=== PATIENT | female | born 1990 | race African-American/Black ===

== ENCOUNTER 2017-02-05 17:48 | Inpatient (IN) | payer BC ==
[~2017-02-05] VITALS: Ht 162.6 cm; Wt 61.2 kg
[2017-02-05] MEDS ORDERED: NKM (18:45)
[2017-02-05 19:04] LABS: APPEARANCE,URINE CLEAR; KETONES,URINE 3+ (NEGATIVE); LEUKOCYTE ESTERASE ,URINE NEGATIVE (NEGATIVE); NITRITE,URINE NEGATIVE (NEGATIVE); PH,URINE 6 (4.5-8.0); PROTEIN,URINE NEGATIVE (NEGATIVE); UROBILINOGEN,URINE 1 MG/DL (0.0-1.0)
[2017-02-05 19:05] LABS: BASOPHILS % (AUTO) 0.9 % (0.0-2.0); EOSINOPHILS % (AUTO) 3.3 % (0.0-3.0); LYMPHOCYTES % (AUTO) 24.6 % (20.0-45.0); MEAN CORPUSCULAR HEMOGLOBIN 31.4 PG (27.0-31.0); MEAN CORPUSCULAR VOLUME 92 FL (80-99); MEAN PLATELET VOLUME 5.8 FL (6.5-10.1); MONOCYTES % (AUTO) 6.6 % (1.0-10.0); NEUTROPHILS % (AUTO) 64.5 % (45.0-75.0); PLATELET COUNT 336 K/UL (150-450); RED BLOOD COUNT 3.54 M/UL (4.20-5.40); RED CELL DISTRIBUTION WIDTH 12.8 % (11.6-14.8); WHITE BLOOD COUNT 13.2 K/UL (4.8-10.8)
[2017-02-05 19:06] LABS: ALANINE AMINOTRANSFERASE 15 U/L (3-33); ALBUMIN/GLOBULIN RATIO 0.9 (1.0-2.7); ANION GAP 12 (5-15); ASPARTATE AMINO TRANSFERASE 20 U/L (5-40); CALCIUM 9.2 mg/dL (8.6-10.2); CARBON DIOXIDE 27 mEQ/L (20-30); CHLORIDE 101 mEQ/L (98-107); CREATININE 0.8 mg/dL (0.5-0.9); GLOMERULAR FILTRATION RATE > 60 mL/min (>60); HEMOLYSIS 4; LIPASE 43 U/L (< 60); POTASSIUM 3.9 mEQ/L (3.4-4.9); SODIUM 140 mEQ/L (135-145); TOTAL PROTEIN 8.1 g/dL (6.6-8.7)
[2017-02-05 19:18] LABS: BACTERIA,URINE FEW /HPF; SQUAMOUS EPITHELIAL CELL,UR FEW /LPF (NONE/OCC); WBC,URINE 0-2 /HPF (0 - 2)
[2017-02-05 20:04] LABS: INR 1.1 (0.9-1.1); PROTHROMBIN TIME 11.1 SEC (9.30-11.50)
[2017-02-05] MEDS ORDERED: Solu-MEDROL 125mg Inj IVP ONE (21:00)
[2017-02-05] MEDS ORDERED: Morphine Sulfate 4mg/ml Inj IVP ONE (21:00)
[2017-02-05] MEDS ORDERED: Miralax 17gm pkt ORAL PRN (21:15)
[2017-02-05] MEDS ORDERED: Mylanta II UD 30ml ORAL PRN (21:15)
[2017-02-05] MEDS ORDERED: Nitroglycerin Subl 0.4mg tab (Bottle Of 25) SL PRN (21:15)
[2017-02-05 21:33] VITALS: BP 109/70
--- NOTE | 2017-02-05 21:44 | Emergency Room Report ---
History of Present Illness General Chief Complaint: Abdominal Pain Source: Patient Present Illness HPI 26 YO Female presents to the ED c/o Right lower quadrant pain and tenderness 7/ 10 in severity with associated nausea x 4 days. pt. states pain began becka- umbillical and then migrated to RLQ. pt. states she was seen in a clinic earlier today and was told to go to the ED for evaluation of appendicitis. pt. denies vomiting or fevers, pt. reports chills. pt. states she is due for her period next week. pt denies hx of ovarian cysts. pt. denies constipation or diarrhea, denies abnormal vaginal d/c, dysuria, or frequency. pt. states she had CTA chest performed several months ago. Denies CP, Palpitations, LOC, AMS, dizziness, Changes in Vision, Sensation, paresthesias, or a sudden severe headache. Allergies: Coded Allergies: No Known Allergies (Unverified , 02/05/17) Patient History Past Medical History: see triage record Past Surgical History: none Pertinent Family History: none Last Menstrual Period: 1 month Now: No Immunizations: UTD Reviewed Nursing Documentation: PMH: Agreed, PSxH: Agreed Nursing Documentation-PMH Past Medical History: No Stated History Review of Systems All Other Systems: negative except mentioned in HPI Physical Exam Vital Signs Date Time Temp Pulse Resp B/P Pulse Ox O2 Delivery O2 Flow Rate FiO2 02/05/17 18:01 99.1 103 20 110/78 97 Room Air Sp02 EP Interpretation: reviewed, abnormal - pt is tachycardic 103 bpm General Appearance: no apparent distress, alert, GCS 15, non-toxic Head: normocephalic, atraumatic Eyes: bilateral eye PERRL, bilateral eye normal inspection ENT: hearing grossly normal, normal pharynx, no angioedema, normal voice Neck: full range of motion, supple/symm/no masses Respiratory: lungs clear, normal breath sounds, speaking full sentences Cardiovascular #1: regular rate, rhythm, no edema, tachycardia Gastrointestinal: normal bowel sounds, soft, no rebound, guarding - guarding the RLQ, tenderness - RLQ TTP Rectal: deferred Genitourinary: normal inspection, no CVA tenderness, adnexa normal, other - no adnexal TTP Musculoskeletal: back normal, gait/station normal, normal range of motion, non- tender Neurologic: alert, oriented x3, responsive, motor strength/tone normal, sensory intact, speech normal Psychiatric: judgement/insight normal, memory normal, mood/affect normal Skin: normal color, no rash, warm/dry, well hydrated Lymphatic: no adenopathy Medical Decision Making PA Attestation Dr. Guy is my supervising Physician whom patient management has been discussed with. Diagnostic Impression: Primary Impression: Ileitis Additional Impression: Abdominal pain Qualified Codes: R10.31 - Right lower quadrant pain ER Course Pt. presents to the ED c/o Right lower quadrant pain and tenderness 7/10 in severity with associated nausea x 4 days. pt. states pain began becka-umbillical and then migrated to RLQ. pt. states she was seen in a clinic earlier today and was told to go to the ED for evaluation of appendicitis. pt. denies vomiting or fevers, pt. reports chills. pt. states she is due for her period next week. pt denies hx of ovarian cysts. pt. denies constipation or diarrhea, denies abnormal vaginal d/c, dysuria, or frequency. pt. states she had CTA chest performed several months ago. Ddx considered but are not limited to Diverticulitis, acute appendicitis, diarrhea, UC, PUD, GE, ovarian cyst just to name a few pancreatitis, gallstones. Vital signs: tachcyardic at 103 bpm, remaining VS are WNL, pt. is afebrile H&PE are most consistent with possible appendicitis ORDERS: -CBC - wbc's elevated at 13.2 - CMP, lipase: unremarkable , electrolytes ok -UA: no evidence of infection, rbc's and occult blood present, otherwise unremarkable -Urine Hcg: negative -PT/PTT: WNL - CT Abdomen Pelvis with Contrast: Thickening of terminal ileum suggestive of an ileitis. Inflammation is also seen involving the cecum- normal appendix per official radiology report. ED INTERVENTIONS: -Morphine IV - Prednisone IV -Zofran DISPOSITION: at this time pt. will be admitted to Dr. Coon for Ileitis and possible colitis. Dr. Coon agreed to admit the pt. and to continue pt. care management. Labs Test 02/05/17 18:30 White Blood Count 13.2 K/UL (4.8-10.8) Red Blood Count 3.54 M/UL (4.20-5.40) Hemoglobin 11.1 G/DL (12.0-16.0) Hematocrit 32.7 % (37.0-47.0) Mean Corpuscular Volume 92 FL (80-99) Mean Corpuscular Hemoglobin 31.4 PG (27.0-31.0) Mean Corpuscular Hemoglobin Concent 34.0 G/DL (32.0-36.0) Red Cell Distribution Width 12.8 % (11.6-14.8) Platelet Count 336 K/UL (150-450) Mean Platelet Volume 5.8 FL (6.5-10.1) Neutrophils (%) (Auto) 64.5 % (45.0-75.0) Lymphocytes (%) (Auto) 24.6 % (20.0-45.0) Monocytes (%) (Auto) 6.6 % (1.0-10.0) Eosinophils (%) (Auto) 3.3 % (0.0-3.0) Basophils (%) (Auto) 0.9 % (0.0-2.0) Prothrombin Time 11.1 SEC (9.30-11.50) Prothromb Time International Ratio 1.1 (0.9-1.1) Activated Partial Thromboplast Time 26 SEC (23-33) Urine Color Yellow Urine Appearance Clear Urine pH 6 (4.5-8.0) Urine Specific [place] 1.015 (1.005-1.035) Urine Protein Negative (NEGATIVE) Urine Glucose (UA) Negative (NEGATIVE) Urine Ketones 3+ (NEGATIVE) Urine Occult Blood 2+ (NEGATIVE) Urine Nitrite Negative (NEGATIVE) Urine Bilirubin Negative (NEGATIVE) Urine Urobilinogen 1 MG/DL (0.0-1.0) Urine Leukocyte Esterase Negative (NEGATIVE) Urine RBC 5-10 /HPF (0 - 2) Urine WBC 0-2 /HPF (0 - 2) Urine Squamous Epithelial Cells Few /LPF (NONE/OCC) Urine Bacteria Few /HPF (NONE) Urine HCG, Qualitative Negative Sodium Level 140 mEQ/L (135-145) Potassium Level 3.9 mEQ/L (3.4-4.9) Chloride Level 101 mEQ/L (98-107) Carbon Dioxide Level 27 mEQ/L (20-30) Anion Gap 12 (5-15) Blood Urea Nitrogen 7 mg/dL (7-23) Creatinine 0.8 mg/dL (0.5-0.9) Estimat Glomerular Filtration Rate > 60 mL/min (>60) Glucose Level 95 mg/dL (74-106) Calcium Level 9.2 mg/dL (8.6-10.2) Total Bilirubin 0.4 mg/dL (0.0-1.2) Aspartate Amino Transf (AST/SGOT) 20 U/L (5-40) Alanine Aminotransferase (ALT/SGPT) 15 U/L (3-33) Alkaline Phosphatase 49 U/L (35-104) Total Protein 8.1 g/dL (6.6-8.7) Albumin 4.0 g/dL (3.5-5.2) Globulin 4.1 g/dL Albumin/Globulin Ratio 0.9 (1.0-2.7) Lipase 43 U/L (< 60) Last Vital Signs Date Time Temp Pulse Resp B/P Pulse Ox O2 Delivery O2 Flow Rate FiO2 02/05/17 21:33 98.2 93 14 109/70 100 Room Air Disposition: ADMITTED INPATIENT Condition: Serious Referrals: NOT CHOSEN MACHELLE/,REFERRING (PCP) Gina Ambrosio Feb 05, 2017 21:44
[2017-02-05 21:50] VITALS: BP 116/74
[2017-02-05] MEDS: D5 1/2NS 1,000 ML IV SCH (22:18)
[2017-02-05] MEDS: Piperacillin/Tazobactam 3.375 GM in NS 110 ML IVPB SCH (22:31)
[2017-02-06] VITALS (12 sets, daily range): BP systolic 97–139; BP diastolic 61–97
[2017-02-06] MEDS: Morphine Sulfate 2mg/ml Inj IVP PRN ×4 (00:42→14:40)
[2017-02-06] MEDS ORDERED: Probiotics PO (02:25)
[2017-02-06] MEDS: Piperacillin/Tazobactam 3.375 GM in NS 110 ML IVPB SCH ×2 (05:54→13:55)
[2017-02-06] MEDS: LORazepam 0.5mg tab ORAL PRN (07:58)
[2017-02-06] MEDS: Pantoprazole Inj IVP SCH (08:23)
[2017-02-06] MEDS ORDERED: Heparin 5000 units/ml inj SUBQ SCH (09:00)
[2017-02-06 09:40] LABS: BASOPHILS % (AUTO) 0.5 % (0.0-2.0); EOSINOPHILS % (AUTO) 4.1 % (0.0-3.0); MEAN CORPUSCULAR HGB CONC 32.2 G/DL (32.0-36.0); MEAN CORPUSCULAR VOLUME 93 FL (80-99); MEAN PLATELET VOLUME 6.1 FL (6.5-10.1); MONOCYTES % (AUTO) 8.4 % (1.0-10.0); PLATELET COUNT 302 K/UL (150-450); RED BLOOD COUNT 3.49 M/UL (4.20-5.40); RED CELL DISTRIBUTION WIDTH 13.3 % (11.6-14.8); WHITE BLOOD COUNT 9.1 K/UL (4.8-10.8)
[2017-02-06 09:50] LABS: ALANINE AMINOTRANSFERASE 11 U/L (3-33); ALBUMIN/GLOBULIN RATIO 0.8 (1.0-2.7); AMYLASE 131 U/L (10-110); ANION GAP 9 (5-15); ASPARTATE AMINO TRANSFERASE 16 U/L (5-40); CALCIUM 8.7 mg/dL (8.6-10.2); CARBON DIOXIDE 26 mEQ/L (20-30); CHLORIDE 104 mEQ/L (98-107); CREATININE 0.6 mg/dL (0.5-0.9); GLOMERULAR FILTRATION RATE > 60 mL/min (>60); HEMOLYSIS 3; LIPASE 28 U/L (< 60); POTASSIUM 3.7 mEQ/L (3.4-4.9); SODIUM 139 mEQ/L (135-145); TOTAL PROTEIN 6.8 g/dL (6.6-8.7)
[2017-02-06] MEDS: D5 1/2NS 1,000 ML IV SCH ×3 (10:45→23:36)
--- NOTE | 2017-02-06 12:55 | History and Physical ---
History of Present Illness General Date patient seen: Feb 06, 2017 Reason for Hospitalization: Abdominal Pain Present Illness HPI 26 year olf Female presents to the ED c/o Right lower quadrant pain and tenderness 7/10 in severity with associated nausea x 4 days. pt. states pain began becka-umbillical and then migrated to RLQ. pt. states she was seen in a clinic earlier today and was told to go to the ED for evaluation of appendicitis. pt. denies vomiting or fevers, pt. reports chills. She had a Ct abdomen in ER showing possible appendicitis, She has been by surgeon who will take her to OR pending availability or OR room. Allergies: Coded Allergies: OXYCODONE (Verified Adverse Reaction, Intermediate, Hallucinations, 02/06/17 ) Per patient she experienced change in mood/behavior and was hallucinations. Medication History Scheduled [Probiotics], 1 CAP PO DAILY, (Reported) Discontinued Medications No Known Medications* (NKM - No Known Medications*), 0 ., (Reported) Discontinued Reason: MD discontinued med Patient History Healthcare decision maker Resuscitation status Full Code Advanced Directive on File No Review of Systems All Other Systems: negative except mentioned in HPI Physical Exam General Appearance: WD/WN Lines, tubes and drains: peripheral HEENT: normocephalic, atraumatic Neck: non-tender, normal alignment Respiratory/Chest: chest wall non-tender, lungs clear Cardiovascular/Chest: normal peripheral pulses, regular rhythm Abdomen: normal bowel sounds, non tender Last 24 Hour Vital Signs Date Time Temp Pulse Resp B/P Pulse Ox O2 Delivery O2 Flow Rate FiO2 02/06/17 11:59 97.9 88 20 97/65 97 Room Air 02/06/17 11:14 98.5 02/06/17 09:00 97.9 81 20 108/70 100 Room Air 02/06/17 00:00 98.0 79 17 113/61 99 Room Air 02/05/17 21:50 98.5 79 17 116/74 100 Room Air 02/05/17 21:39 93 14 109/70 100 Room Air 02/05/17 21:33 98.2 93 14 109/70 100 Room Air 02/05/17 18:01 99.1 103 20 110/78 97 Room Air Intake and Output 02/05/17 02/06/17 19:00 07:00 Intake Total 1682.5 ml Balance 1682.5 ml Intake Oral 0 ml IV Total 1682.5 ml # Voids 2 Laboratory Tests Test 02/05/17 18:30 02/06/17 09:10 White Blood Count 13.2 K/UL (4.8-10.8) H 9.1 K/UL (4.8-10.8) Red Blood Count 3.54 M/UL (4.20-5.40) L 3.49 M/UL (4.20-5.40) L Hemoglobin 11.1 G/DL (12.0-16.0) L 10.5 G/DL (12.0-16.0) L Hematocrit 32.7 % (37.0-47.0) L 32.5 % (37.0-47.0) L Mean Corpuscular Volume 92 FL (80-99) 93 FL (80-99) Mean Corpuscular Hemoglobin 31.4 PG (27.0-31.0) H 30.0 PG (27.0-31.0) Mean Corpuscular Hemoglobin Concent 34.0 G/DL (32.0-36.0) 32.2 G/DL (32.0-36.0) Red Cell Distribution Width 12.8 % (11.6-14.8) 13.3 % (11.6-14.8) Platelet Count 336 K/UL (150-450) 302 K/UL (150-450) Mean Platelet Volume 5.8 FL (6.5-10.1) L 6.1 FL (6.5-10.1) L Neutrophils (%) (Auto) 64.5 % (45.0-75.0) 66.0 % (45.0-75.0) Lymphocytes (%) (Auto) 24.6 % (20.0-45.0) 21.0 % (20.0-45.0) Monocytes (%) (Auto) 6.6 % (1.0-10.0) 8.4 % (1.0-10.0) Eosinophils (%) (Auto) 3.3 % (0.0-3.0) H 4.1 % (0.0-3.0) H Basophils (%) (Auto) 0.9 % (0.0-2.0) 0.5 % (0.0-2.0) Prothrombin Time 11.1 SEC (9.30-11.50) Prothromb Time International Ratio 1.1 (0.9-1.1) Activated Partial Thromboplast Time 26 SEC (23-33) 27 SEC (23-33) Urine Color Yellow Urine Appearance Clear Urine pH 6 (4.5-8.0) Urine Specific [place] 1.015 (1.005-1.035) Urine Protein Negative (NEGATIVE) Urine Glucose (UA) Negative (NEGATIVE) Urine Ketones 3+ (NEGATIVE) H Urine Occult Blood 2+ (NEGATIVE) H Urine Nitrite Negative (NEGATIVE) Urine Bilirubin Negative (NEGATIVE) Urine Urobilinogen 1 MG/DL (0.0-1.0) H Urine Leukocyte Esterase Negative (NEGATIVE) Urine RBC 5-10 /HPF (0 - 2) H Urine WBC 0-2 /HPF (0 - 2) Urine Squamous Epithelial Cells Few /LPF (NONE/OCC) Urine Bacteria Few /HPF (NONE) Urine HCG, Qualitative Negative Sodium Level 140 mEQ/L (135-145) 139 mEQ/L (135-145) Potassium Level 3.9 mEQ/L (3.4-4.9) 3.7 mEQ/L (3.4-4.9) Chloride Level 101 mEQ/L (98-107) 104 mEQ/L (98-107) Carbon Dioxide Level 27 mEQ/L (20-30) 26 mEQ/L (20-30) Anion Gap 12 (5-15) 9 (5-15) Blood Urea Nitrogen 7 mg/dL (7-23) 4 mg/dL (7-23) L Creatinine 0.8 mg/dL (0.5-0.9) 0.6 mg/dL (0.5-0.9) Estimat Glomerular Filtration Rate > 60 mL/min (>60) > 60 mL/min (>60) Glucose Level 95 mg/dL (74-106) 101 mg/dL (74-106) Calcium Level 9.2 mg/dL (8.6-10.2) 8.7 mg/dL (8.6-10.2) Total Bilirubin 0.4 mg/dL (0.0-1.2) 0.4 mg/dL (0.0-1.2) Aspartate Amino Transf (AST/SGOT) 20 U/L (5-40) 16 U/L (5-40) Alanine Aminotransferase (ALT/SGPT) 15 U/L (3-33) 11 U/L (3-33) Alkaline Phosphatase 49 U/L (35-104) 43 U/L (35-104) Total Protein 8.1 g/dL (6.6-8.7) 6.8 g/dL (6.6-8.7) Albumin 4.0 g/dL (3.5-5.2) 3.2 g/dL (3.5-5.2) L Globulin 4.1 g/dL 3.6 g/dL Albumin/Globulin Ratio 0.9 (1.0-2.7) L 0.8 (1.0-2.7) L Lipase 43 U/L (< 60) 28 U/L (< 60) Amylase Level 131 U/L (10-110) H Height (Feet): 5 Height (Inches): 4.00 Weight (Pounds): 135 Medications Current Medications Medications (Trade) Dose Ordered Sig/Humaira Route PRN Reason Start Time Stop Time Status Last Admin Dose Admin Acetaminophen (Tylenol) 650 mg Q4H PRN ORAL fever 02/05/17 21:15 03/07/17 21:14 Al Hydroxide/Mg Hydroxide (Mylanta II) 30 ml Q6H PRN ORAL dyspepsia 02/05/17 21:15 03/07/17 21:14 Dextrose STAT PRN IV Hypoglycemia 02/05/17 21:15 03/07/17 21:14 Dextrose/Sodium Chloride (D5 0.45% NS) 1,000 ml @ 75 mls/hr [id number] IV 02/05/17 21:25 03/07/17 21:24 02/05/17 22:18 Diphenhydramine HCl (Benadryl) 25 mg Q6H PRN ORAL Itching/Pruritis 02/05/17 21:15 03/07/17 21:14 Lorazepam (Ativan) 0.5 mg Q6H PRN ORAL For Anxiety 02/06/17 08:00 02/13/17 07:59 02/06/17 07:58 Morphine Sulfate (Morphine Sulfate) 2 mg EVERY 4 HOURS PRN IVP severe Pain (Pain Scale 7-10) 02/05/17 21:15 02/12/17 21:14 02/06/17 10:44 Nitroglycerin (Ntg) 0.4 mg Q5M X 3 DOSES PRN SL Prn Chest Pain 02/05/17 21:15 03/07/17 21:14 Ondansetron HCl (Zofran) 4 mg Q6H PRN IVP Nausea & Vomiting 02/05/17 21:15 03/07/17 21:14 Pantoprazole (Protonix) 40 mg DAILY IVP 02/06/17 09:00 03/08/17 08:59 02/06/17 08:23 Piperacillin Sod/ Tazobactam Sod/ Sodium Chloride (Zosyn/Sodium Chloride) 110 ml @ 27.5 mls/hr EVERY 8 HOURS IVPB 02/05/17 22:00 02/12/17 21:59 02/06/17 05:54 Polyethylene Glycol (Miralax) 17 gm HSPRN PRN ORAL Constipation 02/05/17 21:15 03/07/17 21:14 Temazepam (Restoril) 15 mg HSPRN PRN ORAL Insomnia 02/05/17 21:15 02/12/17 21:14 Assessment/Plan Problem List: (1) PID (acute pelvic inflammatory disease) ICD Codes: N73.0 - Acute parametritis and pelvic cellulitis SNOMED: 641770148 (2) Appendicitis ICD Codes: K37 - Unspecified appendicitis SNOMED: 44761801 (3) Abdominal pain ICD Codes: R10.9 - Unspecified abdominal pain SNOMED: 39347189 Qualifiers: Qualified Codes: R10.31 - Right lower quadrant pain (4) colitis (5) Ileitis ICD Codes: K52.9 - Noninfective gastroenteritis and colitis, unspecified SNOMED: 09213394 Assessment/Plan IV abx NPO iv fluids surgery and GI evaluation. MICKY WOODARD Feb 06, 2017 12:55
--- NOTE | 2017-02-06 14:18 | General Progress Note ---
Progress Note Progress Note Surgery: called to see patient with acute RLQ abdominal pain. Patient states 2-3 days ago began to have vague lower abdominal pain periumbilical that has since localized to RLQ. pain associated with nausea. As pain progressed she went to her pcp who recommended her to come to ED. Came to ED recently and admitted for evaluation. CT scan performed in ED was read by outside radiologist as normal appendix. In review of CT today by myself and our in house radiologist, appendix does not look completely normal as there is some thickening and inflammation at the tip with periappendiceal inflammation at the tip. on exam she has focal right lower quadrant tenderness with rebound and guarding. +rovsings +mcburney's point tenderness. T max 99.1. WBC 13k on admission. Currently still in pain and almost unable to perform exam because of focal RLQ tenderness. High suspicion for appendicitis given history and clinical exam. Recommend laparoscopic appendectomy. discussed with patient above. explained that despite exam and date there is still a possibility of false positive and no pathology found during surgery. consent obtained. Joe Mckeon Feb 06, 2017 14:18
--- NOTE | 2017-02-06 14:19 | Pre-Procedure Note/Attestation ---
Pre-Procedure Note/Attestation Complete Prior to Procedure Planned Procedure: not applicable Procedure Narrative: laparoscopic appendectomy Indications for Procedure Pre-Operative Diagnosis: focal RLQ abdominal pain likely appendicitis Attestation I attest that I discussed the nature of the procedure; its benefits; risks and complications; and alternatives (and the risks and benefits of such alternatives ), prior to the procedure, with the patient (or the patient's legal registration representative). I attest that, if there was a reasonable possibility of needing a blood transfusion, the patient (or the patient's legal registration representative) was given the [facility] standardized written summary, pursuant to the [place] Blood Safety Act ([place] Health and Safety Code # 1645, as amended). I attest that I re-evaluated the patient just prior to the surgery and that there has been no change in the patient's H&P, except as documented below: Joe Mckeon Feb 06, 2017 14:19
--- NOTE | 2017-02-06 14:57 | Diagnostic Imaging Report ---
Clinical Indication: Abdominal pain right lower quadrant pain Technique: No oral contrast utilized, per emergency room physician request IV administration nonionic contrast. Venous and delayed phase spiral acquisition obtained through the abdomen and pelvis. Multiplanar reconstructions were generated. Total dose length product 1335 mGycm. CTDIvol(s) 14 and 15 mGy. Dose reduction achieved using automated exposure control Comparison: None Findings: Lack of enteric contrast severely limits assessment of the bowel. The appendix is slightly prominent and some fluid is seen surrounding it. It measures up to 10 mm thick near the base. No discrete extraluminal fluid collections. No extraluminal gas The hepatic flexure of the colon projects anterior to the right hepatic lobe and under the right hemidiaphragm. There is equivocal slight infiltration of the pericolonic fat adjacent to the hepatic flexure as well as to a slight extent adjacent to the transverse colon. There is equivocal slight thickening of the transverse colon wall. No small bowel distention. No free intraperitoneal air. No evidence of diverticulosis or diverticulitis. The included lung bases are clear. The bones are unremarkable. There is some edema of the subcutaneous fat and of the fat in the lumbar region. There is what appears to be a lipoma within the left upper hip region/lower flank subcutaneous fat. The liver, gallbladder, bile ducts, pancreas, spleen, adrenals, kidneys are unremarkable. No retroperitoneal or mesenteric mass or adenopathy. No pelvic mass or adenopathy. 2.4 cm presumed dominant follicle is seen in the left ovary. Cluster of cysts is seen surrounding the endocervical canal Impression: Limited assessment of the GI tract, due to lack of enteric contrast administration Slightly prominent appendix with slight inflammation of the stranding fat and possibly small amount of fluid. Findings are suspicious for acute appendicitis Possible inflammation of the hepatic flexure of the colon and transverse colon as well. Nonspecific edema of the subcutaneous and lumbar fat. Trace free pelvic fluid, likely physiologic. However, pelvic structures are not well-defined, and pelvic and endovaginal ultrasound should be considered to rule out underlying pelvic inflammatory disease. 2.4 cm left ovarian cyst, probably a dominant follicle Clustered cysts surrounding endocervical canal, probably a tunnel cluster of nabothian cysts Findings represent a discrepancy from the [facility] bone report. Discrepant findings were discussed by phone with with Dr. Coon, reviewed in person with Dr. Foster and Dr. Mckeon The CT scanner at [facility] is accredited by the [place] [employer] and the scans are performed using protocols designed to limit radiation exposure to as low as reasonably achievable to attain images of sufficient resolution adequate for diagnostic evaluation.
--- NOTE | 2017-02-06 15:21 | GI Initial Consult Note ---
History of Present Illness General Date patient seen: Feb 06, 2017 Time patient seen: 13:00 Reason for Hospitalization: Abdominal Pain Referring physician: MICKY ZAVALETA Reason for Consultation: ABDOMINAL PAIN Present Illness HPI 26 YO Female presents to the ED c/o Right lower quadrant pain and tenderness 7/ 10 in severity with associated nausea x 4 days. pt. states pain began becka- umbillical and then migrated to RLQ. pt. states she was seen in a clinic earlier today and was told to go to the ED for evaluation of appendicitis. pt. denies vomiting or fevers, pt. reports chills. pt. states she is due for her period next week. pt denies hx of ovarian cysts. pt. denies constipation or diarrhea, denies abnormal vaginal d/c, dysuria, or frequency. pt. states she had CTA chest performed several months ago. Denies CP, Palpitations, LOC, AMS, dizziness, Changes in Vision, Sensation, paresthesias, or a sudden severe headache. GI Consult. HPI as noted above. GI consulted for abdominal pain; appendicitis vs ileitis based on CT AP in ER. Pt seen on floor, awake A&Ox4 NAD with no active s/sx of N/V/D. Presents today with RLQ pain, leukocytosis and mild anemia. C/o of constipation. No history of endoscopic procedures. Home Meds Reported Medications [Probiotics] No Conflict Check, 1 CAP PO DAILY 02/06/17 Discontinued Reported Medications No Known Medications* (NKM - No Known Medications*) ., 0 ., 0 Refills 02/05/17 Med list reviewed/reconciled: Yes Allergies: Coded Allergies: OXYCODONE (Verified Adverse Reaction, Intermediate, Hallucinations, 02/06/17 ) Per patient she experienced change in mood/behavior and was hallucinations. Patient History History Provided By: Patient, Medical Record PMH Narrative No Stated History Social History: Denies: alcohol use, drug use, other, smoking Review of Systems All Other Systems: negative except mentioned in HPI Physical Exam Vital Signs Date Time Temp Pulse Resp B/P Pulse Ox O2 Delivery O2 Flow Rate FiO2 02/05/17 18:01 99.1 103 20 110/78 97 Room Air Sp02 EP Interpretation: reviewed Labs Laboratory Tests Test 02/05/17 18:30 02/06/17 09:10 White Blood Count 13.2 K/UL (4.8-10.8) H 9.1 K/UL (4.8-10.8) Red Blood Count 3.54 M/UL (4.20-5.40) L 3.49 M/UL (4.20-5.40) L Hemoglobin 11.1 G/DL (12.0-16.0) L 10.5 G/DL (12.0-16.0) L Hematocrit 32.7 % (37.0-47.0) L 32.5 % (37.0-47.0) L Mean Corpuscular Volume 92 FL (80-99) 93 FL (80-99) Mean Corpuscular Hemoglobin 31.4 PG (27.0-31.0) H 30.0 PG (27.0-31.0) Mean Corpuscular Hemoglobin Concent 34.0 G/DL (32.0-36.0) 32.2 G/DL (32.0-36.0) Red Cell Distribution Width 12.8 % (11.6-14.8) 13.3 % (11.6-14.8) Platelet Count 336 K/UL (150-450) 302 K/UL (150-450) Mean Platelet Volume 5.8 FL (6.5-10.1) L 6.1 FL (6.5-10.1) L Neutrophils (%) (Auto) 64.5 % (45.0-75.0) 66.0 % (45.0-75.0) Lymphocytes (%) (Auto) 24.6 % (20.0-45.0) 21.0 % (20.0-45.0) Monocytes (%) (Auto) 6.6 % (1.0-10.0) 8.4 % (1.0-10.0) Eosinophils (%) (Auto) 3.3 % (0.0-3.0) H 4.1 % (0.0-3.0) H Basophils (%) (Auto) 0.9 % (0.0-2.0) 0.5 % (0.0-2.0) Prothrombin Time 11.1 SEC (9.30-11.50) Prothromb Time International Ratio 1.1 (0.9-1.1) Activated Partial Thromboplast Time 26 SEC (23-33) 27 SEC (23-33) Urine Color Yellow Urine Appearance Clear Urine pH 6 (4.5-8.0) Urine Specific [place] 1.015 (1.005-1.035) Urine Protein Negative (NEGATIVE) Urine Glucose (UA) Negative (NEGATIVE) Urine Ketones 3+ (NEGATIVE) H Urine Occult Blood 2+ (NEGATIVE) H Urine Nitrite Negative (NEGATIVE) Urine Bilirubin Negative (NEGATIVE) Urine Urobilinogen 1 MG/DL (0.0-1.0) H Urine Leukocyte Esterase Negative (NEGATIVE) Urine RBC 5-10 /HPF (0 - 2) H Urine WBC 0-2 /HPF (0 - 2) Urine Squamous Epithelial Cells Few /LPF (NONE/OCC) Urine Bacteria Few /HPF (NONE) Urine HCG, Qualitative Negative Sodium Level 140 mEQ/L (135-145) 139 mEQ/L (135-145) Potassium Level 3.9 mEQ/L (3.4-4.9) 3.7 mEQ/L (3.4-4.9) Chloride Level 101 mEQ/L (98-107) 104 mEQ/L (98-107) Carbon Dioxide Level 27 mEQ/L (20-30) 26 mEQ/L (20-30) Anion Gap 12 (5-15) 9 (5-15) Blood Urea Nitrogen 7 mg/dL (7-23) 4 mg/dL (7-23) L Creatinine 0.8 mg/dL (0.5-0.9) 0.6 mg/dL (0.5-0.9) Estimat Glomerular Filtration Rate > 60 mL/min (>60) > 60 mL/min (>60) Glucose Level 95 mg/dL (74-106) 101 mg/dL (74-106) Calcium Level 9.2 mg/dL (8.6-10.2) 8.7 mg/dL (8.6-10.2) Total Bilirubin 0.4 mg/dL (0.0-1.2) 0.4 mg/dL (0.0-1.2) Aspartate Amino Transf (AST/SGOT) 20 U/L (5-40) 16 U/L (5-40) Alanine Aminotransferase (ALT/SGPT) 15 U/L (3-33) 11 U/L (3-33) Alkaline Phosphatase 49 U/L (35-104) 43 U/L (35-104) Total Protein 8.1 g/dL (6.6-8.7) 6.8 g/dL (6.6-8.7) Albumin 4.0 g/dL (3.5-5.2) 3.2 g/dL (3.5-5.2) L Globulin 4.1 g/dL 3.6 g/dL Albumin/Globulin Ratio 0.9 (1.0-2.7) L 0.8 (1.0-2.7) L Lipase 43 U/L (< 60) 28 U/L (< 60) Amylase Level 131 U/L (10-110) H General Appearance: well appearing, no apparent distress, alert Head: normocephalic EENT: PERRL/EOMI, normal ENT inspection Neck: supple Respiratory: normal breath sounds, no respiratory distress Cardiovascular: normal rate Gastrointestinal: normal inspection, non tender, soft, normal bowel sounds Rectal: deferred Musculoskeletal: normal inspection, back normal Neurologic: normal inspection, alert, oriented x3, responsive Psychiatric: normal inspection, judgement/insight normal, memory normal Skin: normal inspection, normal color, no rash, warm/dry, palpation normal Lymphatic: no adenopathy, axilla node tender (R) Current Medications Current Medications Medications (Trade) Dose Ordered Sig/Humaira Route PRN Reason Start Time Stop Time Status Last Admin Dose Admin Acetaminophen (Tylenol) 650 mg Q4H PRN ORAL fever 02/05/17 21:15 03/07/17 21:14 Al Hydroxide/Mg Hydroxide (Mylanta II) 30 ml Q6H PRN ORAL dyspepsia 02/05/17 21:15 03/07/17 21:14 Dextrose STAT PRN IV Hypoglycemia 02/05/17 21:15 03/07/17 21:14 Dextrose/Sodium Chloride (D5 0.45% NS) 1,000 ml @ 75 mls/hr [id number] IV 02/05/17 21:25 03/07/17 21:24 02/06/17 13:56 Diphenhydramine HCl (Benadryl) 25 mg Q6H PRN ORAL Itching/Pruritis 02/05/17 21:15 03/07/17 21:14 Lorazepam (Ativan) 0.5 mg Q6H PRN ORAL For Anxiety 02/06/17 08:00 02/13/17 07:59 02/06/17 07:58 Morphine Sulfate (Morphine Sulfate) 2 mg EVERY 4 HOURS PRN IVP severe Pain (Pain Scale 7-10) 02/05/17 21:15 02/12/17 21:14 02/06/17 14:40 Nitroglycerin (Ntg) 0.4 mg Q5M X 3 DOSES PRN SL Prn Chest Pain 02/05/17 21:15 03/07/17 21:14 Ondansetron HCl (Zofran) 4 mg Q6H PRN IVP Nausea & Vomiting 02/05/17 21:15 03/07/17 21:14 Pantoprazole (Protonix) 40 mg DAILY IVP 02/06/17 09:00 03/08/17 08:59 02/06/17 08:23 Piperacillin Sod/ Tazobactam Sod/ Sodium Chloride (Zosyn/Sodium Chloride) 110 ml @ 27.5 mls/hr EVERY 8 HOURS IVPB 02/05/17 22:00 02/12/17 21:59 02/06/17 13:55 Polyethylene Glycol (Miralax) 17 gm HSPRN PRN ORAL Constipation 02/05/17 21:15 03/07/17 21:14 Temazepam (Restoril) 15 mg HSPRN PRN ORAL Insomnia 02/05/17 21:15 02/12/17 21:14 GI: Plan Problems: (1) Appendicitis (2) colitis (3) Ileitis (4) Abdominal pain (5) PID (acute pelvic inflammatory disease) Plan CT AP reviewed >> - Slightly prominent appendix with slight inflammation of the stranding fat and possibly small amount of fluid. Findings are suspicious for acute appendicitis - Possible inflammation of the hepatic flexure of the colon and transverse colon as well. defer colonoscopy at this time >> patient scheduled for lap appy, see surgical note anemia work up OB stool r/o GI bleed fu pelvic U/S ppi fu labs Discussed with Dr. Chin. Thank you for referring this patient, we will follow. Lynne Frey N.P. Feb 06, 2017 15:21
[2017-02-06] MEDS ORDERED: Bupivacaine w/Epi 0.5% 30ml Vial INJ ONE (15:54)
[2017-02-06] MEDS ORDERED: fentaNYL 250mcg/5ml ONE (16:00)
[2017-02-06] MEDS ORDERED: Zemuron 50mg/5ml Inj IV ONE (16:00)
[2017-02-06] MEDS ORDERED: Midazolam 2mg/2ml Inj ONE (16:00)
[2017-02-06] MEDS ORDERED: Lidocaine 1% MPF 10mg/ml 5ml ONE (16:00)
[2017-02-06] MEDS ORDERED: Ketorolac 30mg Inj ONE (16:00)
[2017-02-06] MEDS ORDERED: LR 1000ml ONE (16:00)
[2017-02-06] MEDS ORDERED: Propofol 10mg/ml 20ml IV ONE (16:00)
[2017-02-06] MEDS ORDERED: Metoclopramide 10mg/2ml Inj ONE (16:00)
--- NOTE | 2017-02-06 16:12 | Diagnostic Imaging Report ---
Indication: PAIN, abnormal recent CT scan Technique: Transabdominal and transvaginal images aerated compression images of the right lower quadrant Comparison: CT scan 02/05/2017 Findings: Uterus measures 6.4 cm length by 3 cm AP. Endometrium measures 6 mm thick. No myometrial abnormalities. Free fluid is seen in the cul-de-sac. Right ovary measures 3.8 cm in length. Cervix demonstrates numerous nabothian cysts. Left ovary measures 4.6 cm in length, contains a 2.7 cm presumed dominant follicle. In the right lower quadrant, there is a 7-10 mm thick noncompressible non-peristalsing tubular structure which is tender to compression and surrounded by free fluid Impression: Right lower quadrant noncompressible thickened tubular structure suspicious for acute appendicitis No evidence of pelvic inflammatory disease Free pelvic fluid, quite possibly physiologic 2.7 cm left ovarian dominant follicle, also demonstrated on recent CT Numerous cervical nabothian cysts, possibly a tunnel cluster, also demonstrated on recent CT
--- NOTE | 2017-02-06 16:14 | Infectious Diseases Prog Note ---
Infectious Disease Consult Infectious Disease Consult Infectious Disease Consult INFECTIOUS DISEASE CONSULTATION DATE OF CONSULTATION: 06feb2017 CONSULTING PHYSICIAN: Armando Neil M.D., MTM&H, CTropMed Covering for Dr. Rosenberg REFERRING PHYSICIAN: Dr. Niru Coon REASON FOR CONSULTATION: Appendicitis vs ileitis HISTORY OF PRESENT ILLNESS: 26 y/o female presenjts with 4 days abd pain, nausea, and fevers. began as vague lower periumbilical pain, then localized to RLQ. associated with nausea. Tmax 99.1, WBC 13k on admission , but normalized on empiric IV zosyn started last night, despite 1 dose of IV solumedrol given in ER. severe pain with rebound and guarding. denies PMHx, did have CTA chest several months ago that she reports was negative. LMP 3 weeks ago, denies h/o ovarian cysts, denies constipation, diarrhea, denies vaginal discharge, denies h/o urinary frequency or urgency, no h/o STDs or UTI, and no recent abx. CT a/p with IV contrast concerning for early appendicitis vs ileitis. denies TB exposure. no h/o endometriosis. no family hx of autoimmune disease or spondyloarthropathy. PAST MEDICAL HISTORY: none Past Surgical History: none ALLERGIES: No known drug allergies. ANTIBIOTICS: Home and hospitalized medications reviewed. Zosyn 3.375gm IV q8hr extended infusion (05feb2017-- SOCIAL HISTORY: denies significant etoh use. no IVDU. sexually active FAMILY HISTORY: Noncontributory REVIEW OF SYSTEMS: 11 point ROS negative except for that mentioned in HPI above. PHYSICAL EXAM: VITAL SIGNS: reviewed currently afebrile. GEN: awake, alert, appears fatigued HEENT: Mild pale conjunctiva. oral mucosa dry, phaynx w/o exudate or effusion. No icterus. Head normocephalic, neck supple. NECK: No cervical LAD CHEST: Clear to auscultation bilaterally. HEART: S1 and S2, no murmurs, no rubs. ABDOMEN: tender to palpation RUQ, + rosving's , + mcburny's point tenderness, non distended, hypoactive bowel sounds. neg baeza-olmedo. + rebound, + guarding. EXTREMITIES: No cyanosis, no clubbing, no edema. NEUROLOGIC: Awake, alert, no focal neurologic motor deficits. : deferred LYMPH: no LAD RECTAL: deferred LABORATORY AND DIAGNOSTIC DATA: WBC 13.2-->9.1, hgb 11.1, plt 302, N 66% bmp 139/3.7/104/26/4/0.6/101 Ca 8.7 t bili 0.4, ast 16, alt 11, alk phos 43, prot 6.8, alb 3.2, amylase 131, lipase 28 u/a 3+ ketones/neg LE/neg nit/0 wbc Stool cx pending stool C diff pending RADIOLOGY: Procedure: CT Abdomen Pelvis w/Contrast Clinical Indication: Abdominal pain right lower quadrant pain Technique: No oral contrast utilized, per emergency room physician request IV administration nonionic contrast. Venous and delayed phase spiral acquisition obtained through the abdomen and pelvis. Multiplanar reconstructions were generated. Total dose length product 1335 mGycm. CTDIvol(s) 14 and 15 mGy. Dose reduction achieved using automated exposure control Comparison: None Findings: Lack of enteric contrast severely limits assessment of the bowel. The appendix is slightly prominent and some fluid is seen surrounding it. It measures up to 10 mm thick near the base. No discrete extraluminal fluid collections. No extraluminal gas The hepatic flexure of the colon projects anterior to the right hepatic lobe and under the right hemidiaphragm. There is equivocal slight infiltration of the pericolonic fat adjacent to the hepatic flexure as well as to a slight extent adjacent to the transverse colon. There is equivocal slight thickening of the transverse colon wall. No small bowel distention. No free intraperitoneal air. No evidence of diverticulosis or diverticulitis. The included lung bases are clear. The bones are unremarkable. There is some edema of the subcutaneous fat and of the fat in the lumbar region. There is what appears to be a lipoma within the left upper hip region/lower flank subcutaneous fat. The liver, gallbladder, bile ducts, pancreas, spleen, adrenals, kidneys are unremarkable. No retroperitoneal or mesenteric mass or adenopathy. No pelvic mass or adenopathy. 2.4 cm presumed dominant follicle is seen in the left ovary. Cluster of cysts is seen surrounding the endocervical canal Impression: Limited assessment of the GI tract, due to lack of enteric contrast administration Slightly prominent appendix with slight inflammation of the stranding fat and possibly small amount of fluid. Findings are suspicious for acute appendicitis Possible inflammation of the hepatic flexure of the colon and transverse colon as well. Nonspecific edema of the subcutaneous and lumbar fat. Trace free pelvic fluid, likely physiologic. However, pelvic structures are not well-defined, and pelvic and endovaginal ultrasound should be considered to rule out underlying pelvic inflammatory disease. 2.4 cm left ovarian cyst, probably a dominant follicle Clustered cysts surrounding endocervical canal, probably a tunnel cluster of nabothian cysts ASSESSMENT AND PLAN ASSESSMENT: 1) Appendicitis vs ileitis r/o typical infectious causes of ileitis: Yersinia, Salmonella, C diff. Lacks risk factors for MAC or TB. Is not immunocompromised or neutropenic, so this is not typhlitis, unlikely to be CMV, unlikely to be actinomyces, and no exposure risk for anisakiasis or histoplasmosis, and has no personal or familial autoimmune history. Likely typical appendicitis, but await report of operative findings. 2) leukocytosis, resolved on empiric IV zosyn 3) acute abdomen 4) dehydration 5) anorexia 6) no h/o TB exposure PLAN: --to OR now with gen surg for probable appendectomy --d/c zosyn D#1 --start unasyn 3gm IV q6hr --f/u stool cx to r/o yersinia and campylobacter --f/u stool C diff --blood cx Thank you for this consultation. Will continue to follow. Covering for Dr. Rosenberg, please call me with questions, Armando Neil M.D. Feb 06, 2017 16:14
--- NOTE | 2017-02-06 16:23 | Anethesia Preoperative Eval ---
Anesthesia Pre-op PMH/ROS General Date of Evaluation: Feb 06, 2017 Anesthesiologist: Moody ASA Score: ASA 2 Mallampati Score Class I : Soft palate, uvula, fauces, pillars visible Class II: Soft palate, uvula, fauces visible Class III: Soft palate, base of uvula visible Class IV: Only hard plate visible Mallampati Classification: Class I Surgeon: Karime Diagnosis: Acute appendicitis Surgical Procedure: Laparoscopic appendectomy Anesthesia History: none Family History: no anesthesia problems Allergies: Coded Allergies: OXYCODONE (Verified Adverse Reaction, Intermediate, Hallucinations, 02/06/17 ) Per patient she experienced change in mood/behavior and was hallucinations. Medications: see eMAR Past Medical History Cardiovascular: Denies: CAD, HTN, [place], arrhythmia, other, valve dz Pulmonary: Denies: COPD, [place], asthma, other Gastrointestinal/Genitourinary: Denies: CRI, ESRD, GERD, other Neurologic/Psychiatric: Reports: depression/anxiety, Denies: CVA, TIA, dementia, other Endocrine: Denies: DM, hypothyroidism, other, steroids HEENT: Denies: [place] (L), [place] (R), cataract (L), cataract (R), glaucoma, other Hematology/Immune: Denies: DVT, anemia, bleeding disorder, other Musculoskeletal/Integumentary: Denies: DDD, DJD, OA, RA, edema, other PSxH Narrative: liposuction Anesthesia Pre-op Phys. Exam Physician Exam Last Vital Signs Date Time Temp Pulse Resp B/P Pulse Ox O2 Delivery O2 Flow Rate FiO2 02/06/17 15:10 97.9 02/06/17 11:59 88 20 97/65 97 Room Air Constitutional: NAD Cardiovascular: RRR Respiratory: CTA Airway Exam Mallampati Score: Class I MO: full ROM: full Teeth: intact Anesthesia Pre-op A/P Labs Hematology Test 02/05/17 18:30 02/06/17 09:10 White Blood Count 13.2 K/UL (4.8-10.8) H 9.1 K/UL (4.8-10.8) Red Blood Count 3.54 M/UL (4.20-5.40) L 3.49 M/UL (4.20-5.40) L Hemoglobin 11.1 G/DL (12.0-16.0) L 10.5 G/DL (12.0-16.0) L Hematocrit 32.7 % (37.0-47.0) L 32.5 % (37.0-47.0) L Mean Corpuscular Volume 92 FL (80-99) 93 FL (80-99) Mean Corpuscular Hemoglobin 31.4 PG (27.0-31.0) H 30.0 PG (27.0-31.0) Mean Corpuscular Hemoglobin Concent 34.0 G/DL (32.0-36.0) 32.2 G/DL (32.0-36.0) Red Cell Distribution Width 12.8 % (11.6-14.8) 13.3 % (11.6-14.8) Platelet Count 336 K/UL (150-450) 302 K/UL (150-450) Mean Platelet Volume 5.8 FL (6.5-10.1) L 6.1 FL (6.5-10.1) L Neutrophils (%) (Auto) 64.5 % (45.0-75.0) 66.0 % (45.0-75.0) Lymphocytes (%) (Auto) 24.6 % (20.0-45.0) 21.0 % (20.0-45.0) Monocytes (%) (Auto) 6.6 % (1.0-10.0) 8.4 % (1.0-10.0) Eosinophils (%) (Auto) 3.3 % (0.0-3.0) H 4.1 % (0.0-3.0) H Basophils (%) (Auto) 0.9 % (0.0-2.0) 0.5 % (0.0-2.0) Coagulation Test 02/05/17 18:30 02/06/17 09:10 Prothrombin Time 11.1 SEC (9.30-11.50) Prothromb Time International Ratio 1.1 (0.9-1.1) Activated Partial Thromboplast Time 26 SEC (23-33) 27 SEC (23-33) Chemistry Test 02/05/17 18:30 02/06/17 09:10 Sodium Level 140 mEQ/L (135-145) 139 mEQ/L (135-145) Potassium Level 3.9 mEQ/L (3.4-4.9) 3.7 mEQ/L (3.4-4.9) Chloride Level 101 mEQ/L (98-107) 104 mEQ/L (98-107) Carbon Dioxide Level 27 mEQ/L (20-30) 26 mEQ/L (20-30) Anion Gap 12 (5-15) 9 (5-15) Blood Urea Nitrogen 7 mg/dL (7-23) 4 mg/dL (7-23) L Creatinine 0.8 mg/dL (0.5-0.9) 0.6 mg/dL (0.5-0.9) Estimat Glomerular Filtration Rate > 60 mL/min (>60) > 60 mL/min (>60) Glucose Level 95 mg/dL (74-106) 101 mg/dL (74-106) Calcium Level 9.2 mg/dL (8.6-10.2) 8.7 mg/dL (8.6-10.2) Total Bilirubin 0.4 mg/dL (0.0-1.2) 0.4 mg/dL (0.0-1.2) Aspartate Amino Transf (AST/SGOT) 20 U/L (5-40) 16 U/L (5-40) Alanine Aminotransferase (ALT/SGPT) 15 U/L (3-33) 11 U/L (3-33) Alkaline Phosphatase 49 U/L (35-104) 43 U/L (35-104) Total Protein 8.1 g/dL (6.6-8.7) 6.8 g/dL (6.6-8.7) Albumin 4.0 g/dL (3.5-5.2) 3.2 g/dL (3.5-5.2) L Globulin 4.1 g/dL 3.6 g/dL Albumin/Globulin Ratio 0.9 (1.0-2.7) L 0.8 (1.0-2.7) L Lipase 43 U/L (< 60) 28 U/L (< 60) Amylase Level 131 U/L (10-110) H Urine Test Test 02/05/17 18:30 Urine HCG, Qualitative Negative Risk Assessment & Plan Assessment: ASA II Plan: GA Status Change Before Surgery: No Pre-Antibiotics Drug: Zosyn 3.375g Given Within 1 Hr of Incision: LO Tapia M.D. Feb 06, 2017 16:23
--- NOTE | 2017-02-06 16:24 | Immediate Post-Op Evaluation ---
Immediate Post-Op Evalulation Immediate Post-Op Evalulation Procedure: Laparoscopic appendectomy Date of Evaluation: Feb 06, 2017 Time of Evaluation: 17:43 IV Fluids: 800 Blood Products: 0 Estimated Blood Loss: 50 Urinary Output: 0 Blood Pressure Systolic: 120 Blood Pressure Diastolic: 77 Pulse Rate: 107 Respiratory Rate: 17 O2 Sat by Pulse Oximetry: 100 Temperature (Fahrenheit): 97.3 Pain Score (1-10): 0 Nausea: No Vomiting: No Complications 0 Patient Status: awake, reacts, patent, none Hydration Status: adequate Drug: Zozyn 3.375g Given Within 1 Hr of Incision: Yes Time Given: 16:00 LO HIGGINS M.D. Feb 06, 2017 16:24
[2017-02-06] MEDS ORDERED: LR 1000ml 1,000 ML IVLG SCH ×2 (16:26→16:45)
[2017-02-06] MEDS ORDERED: Midazolam 2mg/2ml Inj IVP PRN ×2 (16:30)
[2017-02-06] MEDS ORDERED: DiphenhydrAMINE 50mg/ml Inj IVP PRN ×2 (16:30)
[2017-02-06] MEDS ORDERED: Ketorolac 30mg Inj IV PRN ×2 (16:30)
[2017-02-06] MEDS ORDERED: LORazepam Inj 2mg/ml 1ml IV PRN ×2 (16:30)
[2017-02-06] MEDS ORDERED: fentaNYL 100 mcg/2 mL IV PRN ×2 (16:30)
[2017-02-06] MEDS ORDERED: Metoclopramide 10mg/2ml Inj IVP PRN ×2 (16:30)
--- NOTE | 2017-02-06 17:38 | Brief Operative Note ---
Immediate Post Operative Note Operative Note Pre-op Diagnosis: focal RLQ abdominal pain likely appendicitis Procedure: laparoscopic appendectomy Post-op Diagnosis: same as pre-op plus - multiple intraabdominal adhesions Surgeon: tessa Anesthesiologist: Moody Anesthesia: general Specimen: yes - appendix, adhesion Complications: none Condition: stable Fluids: see records Estimated Blood Loss: minimal Drains: none Implant(s) used?: No Joe Mckeon Feb 06, 2017 17:38
[2017-02-06] MEDS ORDERED: Ampicillin/Sulbactam Sod 3 GM in NS 110 ML IVPB SCH ×2 (18:00→22:00)
[2017-02-06] MEDS: Ampicillin/Sulbactam Sod 3 GM in NS 110 ML IVPB SCH (21:35)
--- NOTE | 2017-02-06 23:15 | Operative Note - Dictated ---
DATE OF OPERATION: 02/06/2017 PREOPERATIVE DIAGNOSIS: Focal right lower quadrant abdominal pain suspicion for acute appendicitis. POSTOPERATIVE DIAGNOSES: 1. Acute appendicitis. 2. Intraabdominal adhesions. OPERATION PERFORMED: Laparoscopic appendectomy. ATTENDING SURGEON: Joe Mckeon M.D. TOP WADDY: None. ANESTHESIOLOGIST: Dr. Uriostegui. ANESTHESIA: General GRAPHIC EDITOR. COMPLICATIONS: None. ESTIMATED BLOOD LOSS: Minimal. IV FLUIDS: Please see anesthesia records. ANTIBIOTICS: The patient was on scheduled IV antibiotics prior to entering for treatment of acute inflammatory/infectious process. SPECIMENS: 1. Appendix. 2. Intraabdominal adhesions. WOUND CLASSIFICATION: Class 2. SPONGE AND NEEDLE COUNT: Correct x2. PERTINENT OPERATIVE FINDINGS: 1. Murky fluid in the pelvis and right lower quadrant. 2. Dilated injected appendiceal tip. 3. Dense adhesions between the terminal ilium and proximal small bowel. 4. Transverse and hepatic flexure above the liver adhesed to the anterior abdominal wall in the right upper quadrant. INDICATIONS FOR PROCEDURE: This is a 26-year-old female, presented to the emergency department late last night complaining of worsening right lower quadrant abdominal pain. As per the patient, two to three days ago, she began to have some vague lower abdominal pain, which began periumbilical and then transitioned and then became more localized within the right lower quadrant. Pain described as a sharp and cramping right lower quadrant pain. It is worse with movement and better with rest and pain medications. In the emergency department, the patient is known to have leukocytosis of 13,[address] scan performed. On initial read of the CAT scan by an outside source, appendix was noted to be normal, but there was thickening of the right lower quadrant, possible of bowel. On review of the CT by our in-house radiologist and myself, there was some dilatation of the distal appendix and fat stranding indicative of early acute appendicitis. A complete pelvic and right lower quadrant abdominal ultrasound was performed. A tubular noncompressible structure is noted in the right lower quadrant as well as some fluid in the cul-de-sac and pelvis, also suggestive of acute appendicitis. On examination, the patient has focal right lower quadrant abdominal tenderness with rebound and guarding and a positive McBurney's point tenderness and positive Rovsing sign. Given these findings, I discussed with the patient, the possibility of acute appendicitis. I explained to the patient that it is not 100% indicative, but based on clinical, radiological, and laboratory examination, highly suspicious of appendicitis. Surgery was indicated. The risks, benefits, and alternatives of surgical intervention were discussed with the patient preoperatively. The patient expressed understanding and consented. OPERATIVE NOTE: The patient was taken to the operating room and placed on operating table in supine position with bilateral arms out. All the bony prominences well padded with gel pads. Preoperative time-out was taken identifying the patient, procedure, operative staff, and surgical staff. SCDs were placed. General anesthesia was induced and the patient was intubated. The left arm was tucked. No Barbosa catheter was placed given the patient voided just prior to entering operating room. The patient was already on scheduled IV antibiotics for acute inflammatory process prior to entering the operating room as well. The abdomen was then prepped and draped in the standard surgical fashion. An umbilical incision was made using a fresh #11 blade and taken down to the fascia. The fascia was elevated and incised. Entry into the abdomen was confirmed visually with the open Mariela technique. A 12 mm balloon-tipped Mariela port was then placed under direct visualization and the abdomen was insufflated to 12 to 15 mmHg without complication. The patient tolerated insufflation well. Laparoscope was inserted and the abdomen was inspected. Upon initial inspection, no injury from initial trocar placement was identified. The pelvis was evaluated and there was some murky serous fluid in the pelvis. The right lower quadrant also had some murky serous fluid as well. There was a definitive inflammatory process in the right lower quadrant with the appendix and the terminal ilium being adhesed to the anterior abdominal wall of right lower quadrant with some fibrinous exudates. The right upper quadrant was evaluated and noted that the hepatic flexure and transverse colon were above the liver adhesed to the peritoneum to the anterior peritoneal lining and transverse colon seem to be going around the dome of the liver. In the left upper quadrant, there were no abnormalities in the stomach and left lobe of liver looked otherwise normal. In the left lower quadrant, there were some small adhesions between the pericolonic fat to the perineum, but otherwise normal. At this time, secondary trocars were placed under direct visualization beginning with a 5 mm trocar in the suprapubic space followed by a 12 mm trocar in the left lower quadrant. Both trocars were placed under direct visualization without complication. Laparoscopic grasper was then inserted and the right lower quadrant was inspected. There were some dense adhesions noted between the terminal ilium and some of the more proximal small bowel including two very dense thick adhesions. Given potential for later obstruction because of these adhesions, the adhesions were ligated using laparoscopic scissors without complication. A piece of the adhesion was sent to pathology for review. At this time, the appendix was identified and noted to have injected tip. The appendix was mobilized from the peritoneal lining that was adhesed to and the appendiceal base was identified. Using a Cristina grasper, a window was made into the base of the appendix. A laparoscopic linear stapler was then inserted and the base of the appendix was ligated without complication. In a similar fashion, a laparoscopic linear stapler was inserted and the mesoappendix was ligated and divided. Surgical clips were used to achieve hemostasis after ligation of the appendix. The appendix was then removed through the umbilical port without complication and sent to pathology for review. The abdomen was then irrigated and suctioned clean. Clear irrigation was identified by the end of the procedure. Copious amounts of warm normal saline was used for irrigation. Following this, the bowel was evaluated and there was some thickening in the terminal ilium, which seem to be caused as a secondary inflammatory process from the appendix or from lysis of the adhesion that was in that area. Otherwise, all looked unremarkable. At this time, we began the termination of procedure. Secondary trocars removed under direct visualization. The abdomen was desufflated. The 12 mm fascial port sites were closed using #0 Vicryl sutures. Skin incisions were then closed using 4-0 Monocryl subcuticular sutures. Local anesthetic was injected throughout the procedure for the patient's comfort. The wounds were irrigated and cleaned followed by placement of skin glue. The patient tolerated the procedure well and was extubated and taken to the postanesthetic care unit in stable condition. Joe Mckeon M.D. DR: Terry JOB#: [id number] CC: AMILCAR
[2017-02-07 00:11] VITALS: BP 140/80
[2017-02-07] MEDS: Ampicillin/Sulbactam Sod 3 GM in NS 110 ML IVPB SCH ×3 (05:03→17:49)
--- NOTE | 2017-02-07 06:23 | 48 Hour Post Anesthesia Eval ---
Post Anesthesia Evaluation Procedure: Laparoscopic appendectomy Date of Evaluation: Feb 07, 2017 Time of Evaluation: 06:22 Blood Pressure Systolic: 140 0: 80 Pulse Rate: 107 Respiratory Rate: 19 Temperature (Fahrenheit): 97.6 O2 Sat by Pulse Oximetry: 97 Airway: patent Nausea: No Vomiting: No Pain Intensity: 2 Hydration Status: adequate Cardiopulmonary Status: Stable Follow-up Care/Observations: 0 Post-Anesthesia Complications: 0 Follow-up care needed: N/A Reinier Booth MD Feb 07, 2017 06:23
--- NOTE | 2017-02-07 06:45 | Infectious Diseases Prog Note ---
Assessment/Plan Assessment/Plan ASSESSMENT: 1) Appendicitis vs ileitis, now POD#1 lap appy r/o typical infectious causes of ileitis: Yersinia, Salmonella, C diff. Lacks risk factors for MAC or TB. Is not immunocompromised or neutropenic, so this is not typhlitis, unlikely to be CMV, unlikely to be actinomyces, and no exposure risk for anisakiasis or histoplasmosis, and has no personal or familial autoimmune history. Likely typical appendicitis, but await report of operative findings. 2) leukocytosis, resolved on empiric IV zosyn 3) acute abdomen 4) dehydration 5) anorexia 6) no h/o TB exposure PLAN: --continue unasyn 3gm IV q6hr POD #1 for 3-5 days post op (02/06 s/p zosyn D#1) --f/u stool cx to r/o yersinia and campylobacter --f/u stool C diff --blood cx --monitor CBC --monitor T Subjective Constitutional: Reports: no symptoms Cardiovascular: Reports: no symptoms Gastrointestinal/Abdominal: Reports: no symptoms Skin: Reports: no symptoms Musculoskeletal: Reports: no symptoms Allergies: Coded Allergies: OXYCODONE (Verified Adverse Reaction, Intermediate, Hallucinations, 02/06/17 ) Per patient she experienced change in mood/behavior and was hallucinations. Objective Vital Signs Last 24 Hour Vital Signs Date Time Temp Pulse Resp B/P Pulse Ox O2 Delivery O2 Flow Rate FiO2 02/07/17 06:23 107 19 97 02/07/17 00:11 97.6 107 19 140/80 97 Nasal Cannula 3.0 02/06/17 20:00 97.8 111 20 125/84 98 Nasal Cannula 3.0 02/06/17 19:40 97.8 110 19 126/86 97 Nasal Cannula 3.0 02/06/17 19:10 97.7 112 20 130/80 98 Nasal Cannula 3.0 02/06/17 18:40 98.4 101 18 133/90 100 Nasal Cannula 3.0 02/06/17 18:30 101 14 132/88 100 Nasal Cannula 3.0 02/06/17 18:15 99 15 129/89 100 Nasal Cannula 3.0 02/06/17 18:00 100 20 136/97 100 Simple Mask 6.0 02/06/17 17:45 102 18 139/95 100 Simple Mask 6.0 02/06/17 17:41 107 17 100 02/06/17 17:38 97.3 107 17 120/77 100 Simple Mask 6.0 02/06/17 15:10 97.9 02/06/17 11:59 97.9 88 20 97/65 97 Room Air 02/06/17 09:00 97.9 81 20 108/70 100 Room Air Height (Feet): 5 Height (Inches): 4.00 Weight (Pounds): 135 Objective GEN: awake, alert, appears comfortable HEENT: Mild pale conjunctiva. oral mucosa dry, phaynx w/o exudate or effusion. No icterus. Head normocephalic, neck supple. NECK: No cervical LAD CHEST: Clear to auscultation bilaterally. HEART: S1 and S2, no murmurs, no rubs. ABDOMEN: abd flat, non distended, hypoactive bowel sounds. lap appy surgical sites c/d/i, well approximated EXTREMITIES: No cyanosis, no clubbing, no edema. NEUROLOGIC: Awake, alert, no focal neurologic motor deficits. : deferred LYMPH: no LAD RECTAL: deferred Laboratory Tests Test 02/06/17 09:10 White Blood Count 9.1 K/UL (4.8-10.8) Red Blood Count 3.49 M/UL (4.20-5.40) L Hemoglobin 10.5 G/DL (12.0-16.0) L Hematocrit 32.5 % (37.0-47.0) L Mean Corpuscular Volume 93 FL (80-99) Mean Corpuscular Hemoglobin 30.0 PG (27.0-31.0) Mean Corpuscular Hemoglobin Concent 32.2 G/DL (32.0-36.0) Red Cell Distribution Width 13.3 % (11.6-14.8) Platelet Count 302 K/UL (150-450) Mean Platelet Volume 6.1 FL (6.5-10.1) L Neutrophils (%) (Auto) 66.0 % (45.0-75.0) Lymphocytes (%) (Auto) 21.0 % (20.0-45.0) Monocytes (%) (Auto) 8.4 % (1.0-10.0) Eosinophils (%) (Auto) 4.1 % (0.0-3.0) H Basophils (%) (Auto) 0.5 % (0.0-2.0) Activated Partial Thromboplast Time 27 SEC (23-33) Sodium Level 139 mEQ/L (135-145) Potassium Level 3.7 mEQ/L (3.4-4.9) Chloride Level 104 mEQ/L (98-107) Carbon Dioxide Level 26 mEQ/L (20-30) Anion Gap 9 (5-15) Blood Urea Nitrogen 4 mg/dL (7-23) L Creatinine 0.6 mg/dL (0.5-0.9) Estimat Glomerular Filtration Rate > 60 mL/min (>60) Glucose Level 101 mg/dL (74-106) Calcium Level 8.7 mg/dL (8.6-10.2) Total Bilirubin 0.4 mg/dL (0.0-1.2) Aspartate Amino Transf (AST/SGOT) 16 U/L (5-40) Alanine Aminotransferase (ALT/SGPT) 11 U/L (3-33) Alkaline Phosphatase 43 U/L (35-104) Total Protein 6.8 g/dL (6.6-8.7) Albumin 3.2 g/dL (3.5-5.2) L Globulin 3.6 g/dL Albumin/Globulin Ratio 0.8 (1.0-2.7) L Amylase Level 131 U/L (10-110) H Lipase 28 U/L (< 60) HIV (1&2) Antibody Rapid Negative (NEGATIVE) Current Medications Medications (Trade) Dose Ordered Sig/Humaira Route PRN Reason Start Time Stop Time Status Last Admin Dose Admin Acetaminophen (Tylenol) 650 mg Q4H PRN ORAL fever 02/05/17 21:15 03/07/17 21:14 Al Hydroxide/Mg Hydroxide (Mylanta II) 30 ml Q6H PRN ORAL dyspepsia 02/05/17 21:15 03/07/17 21:14 Ampicillin Sodium/ Sulbactam Sodium/ Sodium Chloride (Unasyn/Sodium Chloride) 110 ml @ 220 mls/hr Q6HR IVPB 02/06/17 21:30 02/13/17 21:29 02/07/17 05:03 Dextrose (Dextrose 50%) STAT PRN IV Hypoglycemia 02/05/17 21:15 03/07/17 21:14 Dextrose/Sodium Chloride (D5 0.45% NS) 1,000 ml @ 75 mls/hr [id number] IV 02/05/17 21:25 03/07/17 21:24 02/06/17 23:36 Diphenhydramine HCl (Benadryl) 25 mg Q6H PRN ORAL Itching/Pruritis 02/05/17 21:15 03/07/17 21:14 Lorazepam 0.5 mg 0.5 mg Q6H PRN ORAL For Anxiety 02/06/17 08:00 02/13/17 07:59 02/06/17 07:58 Morphine Sulfate (Morphine Sulfate) 2 mg EVERY 4 HOURS PRN IVP severe Pain (Pain Scale 7-10) 02/05/17 21:15 02/12/17 21:14 02/06/17 14:40 Nitroglycerin (Ntg) 0.4 mg Q5M X 3 DOSES PRN SL Prn Chest Pain 02/05/17 21:15 03/07/17 21:14 Ondansetron HCl (Zofran) 4 mg Q6H PRN IVP Nausea & Vomiting 02/05/17 21:15 03/07/17 21:14 Pantoprazole (Protonix) 40 mg DAILY IVP 02/06/17 09:00 03/08/17 08:59 02/06/17 08:23 Polyethylene Glycol (Miralax) 17 gm HSPRN PRN ORAL Constipation 02/05/17 21:15 03/07/17 21:14 Temazepam (Restoril) 15 mg HSPRN PRN ORAL Insomnia 02/05/17 21:15 02/12/17 21:14 Armando Neil M.D. Feb 07, 2017 06:45
[2017-02-07] MEDS: LORazepam 0.5mg tab ORAL PRN ×2 (07:52→16:19)
[2017-02-07] MEDS: Morphine Sulfate 2mg/ml Inj IVP PRN (07:52)
[2017-02-07 08:00] VITALS: BP 114/64
[2017-02-07] MEDS: Pantoprazole Inj IVP SCH (08:27)
[2017-02-07 09:03] LABS: BASOPHILS % (AUTO) 0.2 % (0.0-2.0); EOSINOPHILS % (AUTO) 0.1 % (0.0-3.0); LYMPHOCYTES % (AUTO) 13.8 % (20.0-45.0); MEAN CORPUSCULAR HEMOGLOBIN 30.2 PG (27.0-31.0); MEAN CORPUSCULAR HGB CONC 32.4 G/DL (32.0-36.0); MEAN CORPUSCULAR VOLUME 93 FL (80-99); MONOCYTES % (AUTO) 6.4 % (1.0-10.0); NEUTROPHILS % (AUTO) 79.5 % (45.0-75.0); PLATELET COUNT 300 K/UL (150-450); RED BLOOD COUNT 3.44 M/UL (4.20-5.40); RED CELL DISTRIBUTION WIDTH 12.9 % (11.6-14.8)
[2017-02-07 09:22] LABS: ALANINE AMINOTRANSFERASE 11 U/L (3-33); ALBUMIN/GLOBULIN RATIO 0.9 (1.0-2.7); ANION GAP 10 (5-15); ASPARTATE AMINO TRANSFERASE 15 U/L (5-40); CALCIUM 8.8 mg/dL (8.6-10.2); CARBON DIOXIDE 27 mEQ/L (20-30); CHLORIDE 103 mEQ/L (98-107); CREATININE 0.7 mg/dL (0.5-0.9); GLOMERULAR FILTRATION RATE > 60 mL/min (>60); LIPASE 27 U/L (< 60); POTASSIUM 3.8 mEQ/L (3.4-4.9); SODIUM 140 mEQ/L (135-145); TOTAL PROTEIN 6.7 g/dL (6.6-8.7)
[2017-02-07 09:23] LABS: AMYLASE 673 U/L (10-110)
[2017-02-07 09:27] LABS: HEMOLYSIS 3; IRON 26 ug/dL (37-145); TOTAL IRON BINDING CAPACITY 230 ug/dL (250-400)
--- NOTE | 2017-02-07 10:35 | General Progress Note ---
Progress Note Progress Note Surgery: patient seen and examined. doing very well. pain minimal. no n/v/f/c. tolerating clears. +flatus. no BM yet states that she feels much better and pain is much improved. afebrile, HD stable, labs okay. wbc 11k likely reactive (surgery). Abdominal exam much improved. able to do full exam today without any resistance. incision c/d/i. mild incisional tenderness as anticipated. no longer has focal rlq tenderness Advance to regular diet ambulate and oob okay to d/c from surgical standpoint follow up in 1-2 weeks as outpatient. rx written Joe Mckeon Feb 07, 2017 10:35
[2017-02-07] MEDS ORDERED: Norco 5mg/325mg tab ORAL PRN (11:00)
[2017-02-07 12:00] VITALS: BP 107/75
--- NOTE | 2017-02-07 13:36 | GI Progress Note ---
Assessment/Plan Problems: (1) Appendicitis ICD Codes: K37 - Unspecified appendicitis SNOMED: 98916638 (2) Abdominal pain ICD Codes: R10.9 - Unspecified abdominal pain SNOMED: 29944760 Qualifiers: Qualified Codes: R10.31 - Right lower quadrant pain Status: stable Status Narrative Discussed with Dr. Chin. Assessment/Plan CT AP reviewed >> - Slightly prominent appendix with slight inflammation of the stranding fat and possibly small amount of fluid. Findings are suspicious for acute appendicitis - Possible inflammation of the hepatic flexure of the colon and transverse colon as well. defer colonoscopy at this time >> s/p lap appy, see surgical note. adv diet OOB pain mgmt elevated amylase >> most likely due to recent surgery >> monitor fu labs Subjective Gastrointestinal/Abdominal: Reports: abdominal pain - surgical Objective Last 24 Hour Vital Signs Date Time Temp Pulse Resp B/P Pulse Ox O2 Delivery O2 Flow Rate FiO2 02/07/17 12:00 98.2 65 18 107/75 100 Nasal Cannula 02/07/17 08:22 97.6 02/07/17 08:00 98.1 83 18 114/64 100 Room Air 02/07/17 06:23 107 19 97 02/07/17 00:11 97.6 107 19 140/80 97 Nasal Cannula 3.0 02/06/17 20:00 97.8 111 20 125/84 98 Nasal Cannula 3.0 02/06/17 19:40 97.8 110 19 126/86 97 Nasal Cannula 3.0 02/06/17 19:10 97.7 112 20 130/80 98 Nasal Cannula 3.0 02/06/17 18:40 98.4 101 18 133/90 100 Nasal Cannula 3.0 02/06/17 18:30 101 14 132/88 100 Nasal Cannula 3.0 02/06/17 18:15 99 15 129/89 100 Nasal Cannula 3.0 02/06/17 18:00 100 20 136/97 100 Simple Mask 6.0 02/06/17 17:45 102 18 139/95 100 Simple Mask 6.0 02/06/17 17:41 107 17 100 02/06/17 17:38 97.3 107 17 120/77 100 Simple Mask 6.0 Intake and Output 02/06/17 02/07/17 19:00 07:00 Intake Total 747.5 ml 600 ml Balance 747.5 ml 600 ml IV Total 747.5 ml 600 ml # Voids 2 1 Laboratory Tests Test 02/07/17 08:35 White Blood Count 11.0 K/UL (4.8-10.8) H Red Blood Count 3.44 M/UL (4.20-5.40) L Hemoglobin 10.4 G/DL (12.0-16.0) L Hematocrit 32.0 % (37.0-47.0) L Mean Corpuscular Volume 93 FL (80-99) Mean Corpuscular Hemoglobin 30.2 PG (27.0-31.0) Mean Corpuscular Hemoglobin Concent 32.4 G/DL (32.0-36.0) Red Cell Distribution Width 12.9 % (11.6-14.8) Platelet Count 300 K/UL (150-450) Mean Platelet Volume 6.0 FL (6.5-10.1) L Neutrophils (%) (Auto) 79.5 % (45.0-75.0) H Lymphocytes (%) (Auto) 13.8 % (20.0-45.0) L Monocytes (%) (Auto) 6.4 % (1.0-10.0) Eosinophils (%) (Auto) 0.1 % (0.0-3.0) Basophils (%) (Auto) 0.2 % (0.0-2.0) Sodium Level 140 mEQ/L (135-145) Potassium Level 3.8 mEQ/L (3.4-4.9) Chloride Level 103 mEQ/L (98-107) Carbon Dioxide Level 27 mEQ/L (20-30) Anion Gap 10 (5-15) Blood Urea Nitrogen 3 mg/dL (7-23) L Creatinine 0.7 mg/dL (0.5-0.9) Estimat Glomerular Filtration Rate > 60 mL/min (>60) Glucose Level 121 mg/dL (74-106) H Calcium Level 8.8 mg/dL (8.6-10.2) Iron Level 26 ug/dL (37-145) L Total Iron Binding Capacity 230 ug/dL (250-400) L Percent Iron Saturation 11 % (15-50) L Unsaturated Iron Binding 204 ug/dL (112-346) Total Bilirubin 0.4 mg/dL (0.0-1.2) Aspartate Amino Transf (AST/SGOT) 15 U/L (5-40) Alanine Aminotransferase (ALT/SGPT) 11 U/L (3-33) Alkaline Phosphatase 39 U/L (35-104) Total Protein 6.7 g/dL (6.6-8.7) Albumin 3.2 g/dL (3.5-5.2) L Globulin 3.5 g/dL Albumin/Globulin Ratio 0.9 (1.0-2.7) L Amylase Level 673 U/L (10-110) *H Lipase 27 U/L (< 60) Height (Feet): 5 Height (Inches): 4.00 Weight (Pounds): 135 General Appearance: no apparent distress, alert Cardiovascular: normal rate Respiratory/Chest: normal breath sounds, no respiratory distress Abdominal Exam: normal bowel sounds, non tender, soft, incision site Extremities: normal range of motion Lynne Frey N.P. Feb 07, 2017 13:36
--- NOTE | 2017-02-07 15:27 | Pulmonology Progress Note ---
Assessment/Plan Problems: (1) Appendicitis (2) PID (acute pelvic inflammatory disease) (3) Abdominal pain (4) colitis (5) Ileitis Assessment/Plan repeat amylase advance diet dc today if amylase better. Subjective ROS Limited/Unobtainable: No Interval Events: toleratd appendectomy Constitutional: Reports: no symptoms HEENT: Repors: no symptoms Respiratory: Reports: no symptoms Allergies: Coded Allergies: OXYCODONE (Verified Adverse Reaction, Intermediate, Hallucinations, 02/06/17 ) Per patient she experienced change in mood/behavior and was hallucinations. Objective Last 24 Hour Vital Signs Date Time Temp Pulse Resp B/P Pulse Ox O2 Delivery O2 Flow Rate FiO2 02/07/17 12:00 98.2 65 18 107/75 100 Nasal Cannula 02/07/17 08:22 97.6 02/07/17 08:00 98.1 83 18 114/64 100 Room Air 02/07/17 06:23 107 19 97 02/07/17 00:11 97.6 107 19 140/80 97 Nasal Cannula 3.0 02/06/17 20:00 97.8 111 20 125/84 98 Nasal Cannula 3.0 02/06/17 19:40 97.8 110 19 126/86 97 Nasal Cannula 3.0 02/06/17 19:10 97.7 112 20 130/80 98 Nasal Cannula 3.0 02/06/17 18:40 98.4 101 18 133/90 100 Nasal Cannula 3.0 02/06/17 18:30 101 14 132/88 100 Nasal Cannula 3.0 02/06/17 18:15 99 15 129/89 100 Nasal Cannula 3.0 02/06/17 18:00 100 20 136/97 100 Simple Mask 6.0 02/06/17 17:45 102 18 139/95 100 Simple Mask 6.0 02/06/17 17:41 107 17 100 02/06/17 17:38 97.3 107 17 120/77 100 Simple Mask 6.0 Intake and Output 02/06/17 02/07/17 19:00 07:00 Intake Total 747.5 ml 600 ml Balance 747.5 ml 600 ml IV Total 747.5 ml 600 ml # Voids 2 1 General Appearance: WD/WN HEENT: normocephalic, anicteric Respiratory/Chest: chest wall non-tender, lungs clear Abdomen: normal bowel sounds, soft, non tender Genitourinary: normal external genitalia Skin: no rash Laboratory Tests 02/07/17 08:35: White Blood Count 11.0H, Red Blood Count 3.44L, Hemoglobin 10.4L, Hematocrit 32.0L, Mean Corpuscular Volume 93, Mean Corpuscular Hemoglobin 30.2, Mean Corpuscular Hemoglobin Concent 32.4, Red Cell Distribution Width 12.9, Platelet Count 300, Mean Platelet Volume 6.0L, Neutrophils (%) (Auto) 79.5H, Lymphocytes (%) (Auto) 13.8L, Monocytes (%) (Auto) 6.4, Eosinophils (%) (Auto) 0.1, Basophils (%) (Auto) 0.2, Sodium Level 140, Potassium Level 3.8, Chloride Level 103, Carbon Dioxide Level 27, Anion Gap 10, Blood Urea Nitrogen 3L, Creatinine 0.7, Estimat Glomerular Filtration Rate > 60, Glucose Level 121H, Calcium Level 8.8, Iron Level 26L, Total Iron Binding Capacity 230L, Percent Iron Saturation 11L, Unsaturated Iron Binding 204, Total Bilirubin 0.4, Aspartate Amino Transf ( AST/SGOT) 15, Alanine Aminotransferase (ALT/SGPT) 11, Alkaline Phosphatase 39, Total Protein 6.7, Albumin 3.2L, Globulin 3.5, Albumin/Globulin Ratio 0.9L, Amylase Level [Pending], Lipase 27 Current Medications Medications (Trade) Dose Ordered Sig/Humaira Route PRN Reason Start Time Stop Time Status Last Admin Dose Admin Acetaminophen (Tylenol) 650 mg Q4H PRN ORAL fever 02/05/17 21:15 03/07/17 21:14 Acetaminophen/ Hydrocodone Bitart ([place] 5/325) 1 tab Q4H PRN ORAL Moderate Pain (Pain Scale 4-6) 02/07/17 11:00 02/14/17 10:59 Al Hydroxide/Mg Hydroxide (Mylanta II) 30 ml Q6H PRN ORAL dyspepsia 02/05/17 21:15 03/07/17 21:14 Ampicillin Sodium/ Sulbactam Sodium/ Sodium Chloride (Unasyn/Sodium Chloride) 110 ml @ 220 mls/hr Q6HR IVPB 02/06/17 21:30 02/13/17 21:29 02/07/17 11:39 Diphenhydramine HCl (Benadryl) 25 mg Q6H PRN ORAL Itching/Pruritis 02/05/17 21:15 03/07/17 21:14 Lorazepam 0.5 mg 0.5 mg Q6H PRN ORAL For Anxiety 02/06/17 08:00 02/13/17 07:59 02/07/17 07:52 Ondansetron HCl (Zofran) 4 mg Q6H PRN IVP Nausea & Vomiting 02/05/17 21:15 03/07/17 21:14 Polyethylene Glycol (Miralax) 17 gm HSPRN PRN ORAL Constipation 02/05/17 21:15 03/07/17 21:14 Temazepam (Restoril) 15 mg HSPRN PRN ORAL Insomnia 02/05/17 21:15 02/12/17 21:14 MICKY WOODARD Feb 07, 2017 15:27
[2017-02-07 16:00] VITALS: BP 104/68
[2017-02-07 21:00] VITALS: BP 110/68
[2017-02-07] MEDS ORDERED: Ampicillin/Sulbactam Sod 3 GM in NS 110 ML IVPB SCH (22:00)
[2017-02-08] VITALS: BP 107/65
[2017-02-08] MEDS: Ampicillin/Sulbactam Sod 3 GM in NS 110 ML IVPB SCH ×2 (00:29→05:43)
[2017-02-08 04:00] VITALS: BP 114/74
[2017-02-08] MEDS: LORazepam 0.5mg tab ORAL PRN (05:43)
[2017-02-08 07:55] LABS: BASOPHILS % (AUTO) 1.3 % (0.0-2.0); EOSINOPHILS % (AUTO) 5.3 % (0.0-3.0); LYMPHOCYTES % (AUTO) 48.9 % (20.0-45.0); MEAN CORPUSCULAR HEMOGLOBIN 31.6 PG (27.0-31.0); MEAN CORPUSCULAR HGB CONC 33.8 G/DL (32.0-36.0); MEAN CORPUSCULAR VOLUME 93 FL (80-99); MEAN PLATELET VOLUME 5.4 FL (6.5-10.1); NEUTROPHILS % (AUTO) 37.6 % (45.0-75.0); PLATELET COUNT 245 K/UL (150-450); RED BLOOD COUNT 3.08 M/UL (4.20-5.40); RED CELL DISTRIBUTION WIDTH 13.3 % (11.6-14.8)
[2017-02-08 08:16] LABS: AMYLASE 333 U/L (10-110); ANION GAP 10 (5-15); CALCIUM 8.3 mg/dL (8.6-10.2); CARBON DIOXIDE 27 mEQ/L (20-30); CHLORIDE 104 mEQ/L (98-107); CREATININE 0.7 mg/dL (0.5-0.9); GLOMERULAR FILTRATION RATE > 60 mL/min (>60); HEMOLYSIS 4; POTASSIUM 3.7 mEQ/L (3.4-4.9); SODIUM 141 mEQ/L (135-145)
[2017-02-08 08:33] VITALS: BP 110/73
--- NOTE | 2017-02-08 10:42 | GI Progress Note ---
Assessment/Plan Problems: (1) Appendicitis ICD Codes: K37 - Unspecified appendicitis SNOMED: 20709692 (2) Abdominal pain ICD Codes: R10.9 - Unspecified abdominal pain SNOMED: 70976828 Qualifiers: Qualified Codes: R10.31 - Right lower quadrant pain Status: stable Status Narrative Discussed with Dr. Chin. Assessment/Plan CT AP reviewed >> - Slightly prominent appendix with slight inflammation of the stranding fat and possibly small amount of fluid. Findings are suspicious for acute appendicitis - Possible inflammation of the hepatic flexure of the colon and transverse colon as well. elevated amylase >> most likely due to recent surgery >> downtrending defer colonoscopy at this time >> s/p lap appy, see surgical note. clear for DC per GI standpoint adv diet OOB pain mgmt fu labs Subjective Subjective abdominal pain improved tolerating diet Objective Last 24 Hour Vital Signs Date Time Temp Pulse Resp B/P Pulse Ox O2 Delivery O2 Flow Rate FiO2 02/08/17 08:33 97.6 89 20 110/73 100 02/08/17 04:00 97.7 93 18 114/74 97 Room Air 02/08/17 00:00 97.6 89 18 107/65 97 Room Air 02/07/17 21:00 97.7 112 17 110/68 100 Room Air 02/07/17 16:00 97.6 70 18 104/68 100 Room Air 02/07/17 12:00 98.2 65 18 107/75 100 Nasal Cannula Intake and Output 02/07/17 02/08/17 19:00 07:00 Intake Total 1295 ml 480 ml Balance 1295 ml 480 ml Intake Oral 850 ml 480 ml IV Total 445 ml # Voids 2 Laboratory Tests Test 02/07/17 17:15 02/08/17 07:45 Amylase Level 779 U/L (10-110) *H 333 U/L (10-110) H White Blood Count 8.0 K/UL (4.8-10.8) Red Blood Count 3.08 M/UL (4.20-5.40) L Hemoglobin 9.7 G/DL (12.0-16.0) L Hematocrit 28.8 % (37.0-47.0) L Mean Corpuscular Volume 93 FL (80-99) Mean Corpuscular Hemoglobin 31.6 PG (27.0-31.0) H Mean Corpuscular Hemoglobin Concent 33.8 G/DL (32.0-36.0) Red Cell Distribution Width 13.3 % (11.6-14.8) Platelet Count 245 K/UL (150-450) Mean Platelet Volume 5.4 FL (6.5-10.1) L Neutrophils (%) (Auto) 37.6 % (45.0-75.0) L Lymphocytes (%) (Auto) 48.9 % (20.0-45.0) H Monocytes (%) (Auto) 7.0 % (1.0-10.0) Eosinophils (%) (Auto) 5.3 % (0.0-3.0) H Basophils (%) (Auto) 1.3 % (0.0-2.0) Sodium Level 141 mEQ/L (135-145) Potassium Level 3.7 mEQ/L (3.4-4.9) Chloride Level 104 mEQ/L (98-107) Carbon Dioxide Level 27 mEQ/L (20-30) Anion Gap 10 (5-15) Blood Urea Nitrogen 4 mg/dL (7-23) L Creatinine 0.7 mg/dL (0.5-0.9) Estimat Glomerular Filtration Rate > 60 mL/min (>60) Glucose Level 89 mg/dL (74-106) Calcium Level 8.3 mg/dL (8.6-10.2) L Height (Feet): 5 Height (Inches): 4.00 Weight (Pounds): 135 General Appearance: no apparent distress, alert Cardiovascular: normal rate Respiratory/Chest: normal breath sounds, no respiratory distress Abdominal Exam: normal bowel sounds, non tender, soft Extremities: normal range of motion Lynne Frey N.P. Feb 08, 2017 10:42
[2017-02-08] MEDS ORDERED: Tubing IV Secondary IV ONE ×2 (10:45→11:20)
[2017-02-08] MEDS ORDERED: NORCO 5-325 TA1 EAC1 ORAL (10:54)
[2017-02-08] MEDS ORDERED: SENNA-S TABLET1 EACH PO (10:56)
[2017-02-08] MEDS ORDERED: D5 1/2NS 1000ml IV ONE (11:20)
[2017-02-08] MEDS ORDERED: D5NS 1000ml IV ONE (11:20)
[2017-02-08] MEDS ORDERED: D5W 275ml ONE (11:20)
--- NOTE | 2017-02-09 06:42 | Discharge Summary ---
Discharge Summary Hospital Course Date of Admission Feb 05, 2017 at 19:26 Date of Discharge Feb 08, 2017 at 11:21 Admitting Diagnosis abdominal pain, possible appendicitis PEGGY Acosta is a 26 year old female who was admitted on Feb 05, 2017 at 19:26 for Abdominal Pain,Possible Appendicitis Hospital Course [id number] Discharge Discharge Disposition Patient was discharged to Home (01) Discharge Diagnoses: Yessy Jackson NP Feb 09, 2017 06:42
--- NOTE | 2017-02-10 01:15 | Discharge Summary 2 SIG ---
DATE OF ADMISSION: 02/05/2017 DATE OF DISCHARGE: 02/08/2017 CONSULTANTS: 1. Joe Mckeon M.D. 2. Leobardo Chin M.D. 3. Armando Neil M.D. BRIEF HOSPITAL COURSE: The patient is a 26-year-old female, who presented to ED complaining of right lower quadrant pain with tenderness, 7/10 and associated nausea for seven days. Pain started on the periumbilical area and migrated to the right lower quadrant. She was seen in an outpatient clinic and was told to go to ED for further evaluation of appendicitis. CT of the abdomen and pelvis with contrast showed prominent appendix with slight inflammation of the stranding fat suspicious for acute appendicitis. Transvaginal ultrasound showed right lower quadrant noncompressible thickened tubular structure suspicious for acute appendicitis. Surgical evaluation was done. The patient underwent laparoscopic appendectomy by Dr. Mckeon on 02/06/2017 with findings of acute appendicitis and intraabdominal adhesions. Postoperatively, the patient was given Unasyn. Abdominal pain improved with mild incisional tenderness as anticipated. There was no focal right lower quadrant tenderness. Incision was clean, dry and intact. Diet was advanced. She was encouraged ambulation. Lipase was elevated which was most likely due to recent surgery. Levels eventually downtrended. The patient was then discharged home. FINAL DIAGNOSIS: Acute appendicitis, status post laparoscopic appendectomy. DISPOSITION: The patient was discharged home. MEDICATIONS: Refer to med list. FOLLOWUP: The patient was advised to follow up with PMD in a week and to follow up with Surgery in one to two weeks as outpatient. ACTIVITY: As tolerated. Bunny Coon M.D. I have been assigned to dictate discharge summary on this account and I was not involved in the patient's management. Yessy Jackson N.P. DR: Julius JOB#: [id number] CC: AMILCAR
== END 2017-02-08 11:21 | disposition home or self-care (01) | DRG 336 ==
LOC: EMR 19:23 → 3E 19:26 → EDBEDREQ 20:17
PROC: 0DTJ4ZZ Resection of Appendix, Percutaneous Endoscopic Approach (ICD-10-PCS; principal; 2017-02-06 13:30)
PROC: 0DNW4ZZ Release Peritoneum, Percutaneous Endoscopic Approach (ICD-10-PCS; principal; 2017-02-06 13:30)
DX: K35.80 Unspecified acute appendicitis (principal); N73.0 Acute parametritis and pelvic cellulitis; K66.0 Peritoneal adhesions (postprocedural) (postinfection); D72.829 Elevated white blood cell count, unspecified; D64.9 Anemia, unspecified; E86.0 Dehydration; R63.0 Anorexia; Z68.23 Body mass index [BMI] 23.0-23.9, adult
CPT/HCPCS: 36415; 74177; 76830; 76856; 80048; 80053; 81003; 81025; 82150; 83540; 83550; 83690; 85025; 85610; 85730; 86703; 86850; 86900; 86901; 94003; 94150; J2250; J2405; J2765